=== PATIENT | female | born 1950 | race Caucasian/White ===

== ENCOUNTER 2019-02-18 13:00 | Emergency (ER) | payer MEDICARE ==
--- NOTE | 2019-02-18 13:29 | ED ---
Adult Trauma - HPI Summary HPI Summary: Patient is a 68 y/o F presenting to ED with complaints of fall and head [place]. [place]. She endorses head injury with laceration and some neck pain but denies LOC and back pain. She notes some pain at her left hip but she relates this to her osteoarthritis. On triage, pain is rated 2/10, movement is noted to aggravate Sx. Home medications and allergies are reviewed. is present in the room. - History of Current Complaint Chief Complaint: EDFall Stated Complaint: HEAD INJ FROM FALL PER EMS Time Seen by Provider: 02/18/19 13:12 Hx Obtained From: Patient Mechanism of Injury: Fall Loss of Consciousness: no loss of consciousness Impact: Rear Restraints: None Onset/Duration: Still Present Onset of Pain: Prior to Arrival Onset Severity: Mild Current Severity: Mild Pain Intensity: 2 Pain Scale Used: 0-10 Numeric Location: Head, Other - left hip pain Aggravating Factor(s): Movement Alleviating Factor(s): Nothing Associated Signs & Symptoms: Positive: Other: - positive - head injury, right hip pain, fall, head laceration; negative - back pain, neck pain, LOC - Allergy/Home Medications Allergies/Adverse Reactions: Allergies Allergy/AdvReac Type Severity Reaction Status Date / Time No Known Allergies Allergy Verified 02/18/19 14:45 PMH/Surg Hx/FS Hx/Imm Hx Musculoskeletal History: Reports: Hx Arthritis Sensory History: Denies: Hx Legally Blind, Hx Deafness Opthamlomology History: Denies: Hx Legally Blind EENT History: Denies: Hx Deafness Infectious Disease History: No Infectious Disease History: Denies: Traveled Outside the [place] in Last 30 Days - Family History Known Family History: Positive: Hypertension - Social History Alcohol Use: None Substance Use Type: Reports: None Smoking Status (MU): Never Smoked Tobacco Review of Systems Musculoskeletal: Other - positive - fall, left hip pain, neck pain; negative - back pain Skin: Other - positive - head laceration Neurological: Other - positive - head injury; negative - LOC All Other Systems Reviewed And Are Negative: Yes Physical Exam - Summary Physical Exam Summary: VITAL SIGNS: Reviewed. GENERAL: Patient is a well-developed and nourished female who is lying comfortable in the stretcher. Patient is not in any acute respiratory distress. C-spine and left hip tenderness is noted. HEAD AND FACE: No signs of trauma. No ecchymosis, hematomas or skull depressions. No sinus tenderness. EYES: PERRLA, EOMI x 2, No injected conjunctiva, no nystagmus. EARS: Hearing grossly intact. Ear canals and tympanic membranes are within normal limits. MOUTH: Oropharynx within normal limits. NECK: Supple, trachea is midline, no adenopathy, no JVD, no carotid bruit, no c- spine tenderness, neck with full ROM. CHEST: Symmetric, no tenderness at palpation. LUNGS: Clear to auscultation bilaterally. No wheezing or crackles. CVS: Regular rate and rhythm, S1 and S2 present, no murmurs or gallops appreciated. ABDOMEN: Soft, non-tender. No signs of distention. No rebound, no guarding, and no masses palpated. Bowel sounds are normal. EXTREMITIES: FROM in all major joints, no edema, no cyanosis or clubbing. Good capillary refill. NEURO: Alert and oriented x 3. No acute neurological deficits. Speech is normal and follows commands. SKIN: Dry and warm. Laceration at occipital area. Triage Information Reviewed: Yes Vital Signs On Initial Exam: Initial Vitals Temp Pulse Resp BP Pulse Ox 98.6 F 78 16 151/89 98 02/18/19 13:07 02/18/19 13:07 02/18/19 13:07 02/18/19 13:07 02/18/19 13:07 Vital Signs Reviewed: Yes Procedures - Laceration/Wound Repair 1 Location: head Description: Irregular - cross-shaped laceration, with one line being 5 cm, the other 4 cm Anesthesia: 1.0%, Lido Closure: [place] #__ - 21 Layer Closure?: Yes Sterile Dressing Applied?: Yes Diagnostics - Vital Signs Vital Signs Temp Pulse Resp BP Pulse Ox 02/18/19 13:07 98.6 F 78 16 151/89 98 - Laboratory Lab Statement: Any lab studies that have been ordered have been reviewed, and results considered in the medical decision making process. Re-Evaluation - Re-Evaluation First Eval Re-Evaluation Time: 14:42 Change: Improved Comment: [place] were placed for patient's scalp laceration. Second Eval Re-Evaluation Time: 15:04 Change: Unchanged Comment: I discussed all my findings and test results with the patient and the need to follow-up with primary care physician. The patient understands and agrees. Adult Trauma Course/Dx - Course Assessment/Plan: Patient is a 68 y/o F presenting to ED with complaints of fall and head injury[place]. She endorses head injury with laceration and some neck pain but denies LOC and back pain. She notes some pain at her left hip but she relates this to her osteoarthritis. Left hip and pelvis x ray IMPRESSION: NO RADIOGRAPHIC EVIDENCE FOR HIP FRACTURE. X-RAYS MAY BE NEGATIVE WITH NONDISPLACED HIP FRACTURE, IF THERE IS PERSISTENT CLINICAL CONCERN, RECOMMEND CONSIDERATION OF MRI. IN THE SETTING OF CONTRAINDICATION TO MRI OR LIMITATION IN EMERGENT ACCESS TO MRI, CT WOULD BE SUGGESTED. C spine CT IMPRESSION: DEGENERATIVE DISC DISEASE AND OSTEOARTHRITIS. NO ACUTE OSSEOUS INJURY TO THE CERVICAL SPINE. Head CT IMPRESSION: NO ACUTE INTRACRANIAL PATHOLOGY. Laceration was repaired. The patient was given a tetanus vaccine booster. The patient did not require any pain medications. I discussed all my findings and test results with the patient and the need to follow-up with primary care physician. The patient understands and agrees. Patient is hemodynamically stable. - Diagnoses Provider Diagnoses: Head contusion, Scalp laceration, Neck pain, Hip pain Discharge - Sign-Out/Discharge Documenting (check all that apply): Patient Departure - discharge Patient Received Moderate/Deep Sedation with Procedure: No - Discharge Plan Condition: Stable Disposition: HOME Patient Education Materials: Laceration (ED), Contusion in Adults (ED), Hip Pain (ED), Neck Pain (ED) Referrals: [facility] [Outside] - 7 Days Additional Instructions: RETURN TO ED FOR ANY NEW OR WORSENING SYMPTOMS. HAVE PEYTON REMOVED IN SEVEN DAYS. - Billing Disposition and Condition Condition: STABLE Disposition: Home - Attestation Statements Document Initiated by Scribe: Yes Documenting Scribe: BRYSON CUMMINGS Provider For Whom Jaron is Documenting (Include Credential): JOI DAN MD Scribe Attestation: BRYSON Lopez, scribed for JOI DAN MD on 02/19/19 at 0748. Scribe Documentation Reviewed: Yes Provider Attestation: The documentation as recorded by the BRYSON madison accurately reflects the service I personally performed and the decisions made by me, JOI DAN MD Status of Scribe Document: Viewed
[2019-02-18] MEDS ORDERED: Bacitracin OINTMENT* 0.5% 0.5 oz TUBE ONE (14:47)
[2019-02-18] MEDS ORDERED: Tetan/Diph/Pertus SYR(Tdap)* 0.5 ML SYR(BOOSTRIX) use SYR contains LATEX IM ONE (15:01)
[2019-02-18 15:42] VITALS: BP 142/72
== END 2019-02-18 15:25 | disposition home or self-care (01) ==
LOC: ED 13:00
DX: S01.01XA Laceration without foreign body of scalp, initial encounter (principal); M54.2 Cervicalgia; M25.552 Pain in left hip; Z23 Encounter for immunization; W19.XXXA Unspecified fall, initial encounter; Y92.89 Other specified places as the place of occurrence of the external cause; M47.892 Other spondylosis, cervical region
CPT/HCPCS: 12004; 70450; 72125; 90471; 90715; 99283; A9270-GY